=== PATIENT | female | born 1980 | race Two or more races ===

== ENCOUNTER → 2021-05-18 | Outpatient (CLI) | payer BC ==
[2021-05-18 12:36] LABS: BASOPHILS % 0.9 % (0.0-2.0); EOSINOPHILS % 1.4 % (0.0-5.0); HEMATOCRIT. 37.3 % (36.0-48.0); HEMOGLOBIN. 12.7 g/dL (12.0-16.0); LYMPHOCYTES % 26.7 % (20.0-50.0); MEAN CORPUSCULAR HEMOGLOBIN 29.2 pg (28.0-32.0); MEAN CORPUSCULAR VOLUME 85.5 fL (81.0-99.0); MEAN PLATELET VOLUME 7.3 fl (7.4-10.4); MONOCYTES % 6.7 % (2.0-8.0); NEUTROPHILS % 64.3 % (40.0-76.0); PLATELET 285 x1000/uL (130-400); RED BLOOD CELL COUNT 4.36 mill/uL (4.2-5.4); RED CELL DISTRIBUTION WIDTH 13.4 % (11.6-14.6)
[2021-05-18 12:44] LABS: CHLORIDE 109 mEq/L (98-107)
[2021-05-18 12:51] LABS: LDL CHOLESTEROL 110 mg/dL (5-100)
[2021-05-18 12:53] LABS: HDL CHOLESTEROL 59 mg/dL (40-59)
[2021-05-18 12:55] LABS: T4 FREE 1.08 ng/dL (0.76-1.46)
[2021-05-18 14:06] LABS: VITAMIN B12 SERUM 386 pg/mL (211-911)
[2021-05-18 14:24] LABS: FOLIC ACID (FOLATE) SERUM > 20.00 ng/mL (>5.38)
[2021-05-19 09:10] LABS: ESTRADIOL 60.3 pg/mL (.); FOLICLE STIMULATING HORMONE 4.5 mIU/mL (.); LUTEINIZING HORMONE 1.7 mIU/mL (.); VITAMIN D 25-OH 33.2 ng/mL (30.0-100.0)
[2021-05-24 13:07] LABS: TESTOSTERONE FREE 3.2 pg/mL (0.0-4.2)
== END | disposition home or self-care (01) ==
LOC: LAB 12:07
PROVIDERS: ATTEND Family Medicine
DX: Z13.220 Encounter for screening for lipoid disorders (principal); Z13.29 Encounter for screening for other suspected endocrine disorder; Z00.00 Encounter for general adult medical examination without abnormal findings
CPT/HCPCS: 36415; 80053; 80061; 82306; 82607; 82670; 82746; 83001; 83002; 83036; 84402; 84403; 84439; 84443; 84481; 85025

== ENCOUNTER → 2021-07-04 | Outpatient (CLI) | payer BC | END | disposition home or self-care (01) | LOC: MAMMO 06:58 | PROVIDERS: ATTEND Family Medicine | DX: Z12.31 Encounter for screening mammogram for malignant neoplasm of breast (principal); Z13.29 Encounter for screening for other suspected endocrine disorder | CPT/HCPCS: 77067; 83036 ==

== ENCOUNTER → 2021-12-07 | Outpatient (CLI) | payer BC | END | disposition home or self-care (01) | LOC: LAB 10:44 | PROVIDERS: ATTEND Family Medicine | DX: N92.6 Irregular menstruation, unspecified (principal) | CPT/HCPCS: 36415; 84702 ==